=== PATIENT | female | born 2000 | race Caucasian/White ===

== ENCOUNTER 2021-08-24 02:38 | Emergency (ER) | payer BC, OTHER ==
[2021-08-24] MEDS ORDERED: Sodium Chloride 0.9% 1,000 ML IV ONE (03:14)
[2021-08-24] MEDS ORDERED: Ondansetron 4 MG/2 ML SDV IVPUSH ONE (03:14)
[2021-08-24] MEDS ORDERED: Dicyclomine 10 MG Cap PO ONE (03:15)
[2021-08-24] MEDS ORDERED: Ketorolac 30 MG/ML SDV IVPUSH ONE (03:15)
[2021-08-24 03:31] LABS: BLOOD UREA NITROGEN,BUN 10 mg/dL (7.0-18.0); CARBON DIOXIDE,CO2 22.9 mmol/L (21.0-32.0); CHLORIDE,CL 103 mmol/L (98-107); GLUCOSE RANDOM 99 mg/dL (74-106); LIPASE 59 U/L (73-393); POTASSIUM,K 3.4 mmol/L (3.5-5.1); SODIUM,NA 136 mmol/L (136-145)
== END 2021-08-24 03:59 | disposition home or self-care (01) ==
LOC: MW.ED 02:38
DX: K80.50 Calculus of bile duct without cholangitis or cholecystitis without obstruction (principal); Z91.048 Other nonmedicinal substance allergy status
CPT/HCPCS: 36415; 80053; 81003; 81025; 83690; 85025; 96374; 96375; 99284; J1885; J2405; J7030

== ENCOUNTER 2021-09-10 12:22 | Day surgery (SDC) | payer BC, OTHER ==
[~2021-09-10 12:22] MED LIST: Lactated Ringers 1,000 ML IV SCH; Sodium Chloride 0.9% 10 ML Syringe FLUSH PRN; Sodium Chloride 0.9% 2.5 ML Syringe FLUSH PRN; Sodium Chloride 0.9% 20 ML SDV IV PRN; ceFAZolin 2 GM in Premix Bag 1 BAG IV ONE
[2021-09-10] MEDS ORDERED: HYDROmorphone 1 MG/ML Syringe IVPUSH PRN (12:46)
[2021-09-10] MEDS ORDERED: Albuterol 0.083% 2.5 MG/3 ML Neb Soln NEB PRN (12:46)
[2021-09-10] MEDS ORDERED: Metoclopramide 10 MG/2 ML SDV IVPUSH PRN (12:46)
[2021-09-10] MEDS ORDERED: Ondansetron 4 MG/2 ML SDV IVPUSH PRN (12:46)
[2021-09-10] MEDS ORDERED: fentaNYL 100 MCG/2 ML SDV IVPUSH PRN (12:46)
[2021-09-10] MEDS ORDERED: Naloxone 0.4 MG/ML SDV IVPUSH PRN (12:46)
[2021-09-10] MEDS ORDERED: Propofol 200 MG/20 ML SDV ONE (14:15)
[2021-09-10] MEDS ORDERED: fentaNYL 250 MCG/5 ML SDV ONE (14:15)
[2021-09-10] MEDS ORDERED: Bupivacaine 0.5% 30 ML SDV ONE (14:22)
[2021-09-10] MEDS ORDERED: Octyl 2-Cyanoacrylate 1 Tube ONE (14:22)
[2021-09-10] MEDS ORDERED: Ketamine HCL/NACL, ISO-OSM 50 MG/5 ML Syringe ONE (14:45)
[2021-09-10] MEDS ORDERED: fentaNYL 100 MCG/2 ML SDV ONE ×3 (15:13→15:47)
[2021-09-10] MEDS ORDERED: ePHEDrine 50 MG/ML SDV ONE (16:52)
[2021-09-10] MEDS ORDERED: Rocuronium Bromide 50 MG/5 ML Syringe ONE (16:52)
[2021-09-10] MEDS ORDERED: Lidocaine 2% Jelly 30 ML Tube ONE (16:52)
[2021-09-10] MEDS ORDERED: Sugammadex Sodium 200 MG/2 ML VIAL ONE (16:52)
[2021-09-10] MEDS ORDERED: Ondansetron 4 MG/2 ML SDV ONE (16:52)
[2021-09-10] MEDS ORDERED: Ketorolac 30 MG/ML SDV ONE (16:52)
[2021-09-10] MEDS ORDERED: Glycopyrrolate 0.2 MG/ML SDV ONE (16:52)
[2021-09-10] MEDS ORDERED: Dexamethasone 4 MG/ML 5 ML MDV ONE (16:52)
== END 2021-09-10 18:00 | disposition home or self-care (01) ==
LOC: MW.SDS 12:22
PROVIDERS: ATTEND Surgery
DX: K80.10 Calculus of gallbladder with chronic cholecystitis without obstruction (principal); K82.8 Other specified diseases of gallbladder; E66.9 Obesity, unspecified; Z91.09 Other allergy status, other than to drugs and biological substances; Z90.89 Acquired absence of other organs; Z68.41 Body mass index [BMI] 40.0-44.9, adult; Z79.899 Other long term (current) drug therapy
CPT/HCPCS: 47562; 81025; A9270; J0131; J1100; J1885; J2405; J2704; J3010; J3490; J7120; 00790